=== PATIENT | female | born 1945 | race Caucasian/White ===

== ENCOUNTER → 2018-06-16 | Outpatient (CLI) | payer MEDICARE, OTHER ==
[~2018-06-16] MED LIST: IBUP-136 PO; VIT-7 PO
[2018-06-16 17:19] LABS: PLATELET COUNT, AUTOMATED 221 K/uL (150-450)
== END ==
LOC: LAB 16:30
PROVIDERS: ATTEND Family Medicine
DX: I10 Essential (primary) hypertension (principal); R79.89 Other specified abnormal findings of blood chemistry
CPT/HCPCS: 36415; 82040; 82247; 82310; 82374; 82435; 82565; 82947; 84075; 84132; 84155; 84295; 84439; 84443; 84450; 84460; 84520; 85025

== ENCOUNTER → 2018-08-27 | Outpatient (CLI) | payer MEDICARE, OTHER ==
--- NOTE | 2018-08-27 16:33 | RADIOLOGY IMAGING REPORT ---
FACILITY: [facility] PATIENT NAME: Digna Khan : 1945 MR: [id number] V: [id number] EXAM DATE: ORDERING PHYSICIAN: FRED CATHERINE TECHNOLOGIST: Location: [facility] [place] Patient: Digna Khan : 1945 Visit/Account:[id number] Date of Sevice: 08/27/2018 DEXA Scan Clinical history: Postmenopausal. Comparison: DEXA scan from 04/28/2009. LUMBAR SPINE: The bone mineral density (BMD) measured from L1-L4 correlates with a Z-score of 9.3 and a T-score of 7.6 which is Normal as defined by the World Health Organization. The corresponding risk of fracture in the lumbar spine is Not increased compared with a young adult reference population. This value williamson s increase by 26.6 % since the prior study. More than 5% change is considered significant. HIP: Bone mineral density (BMD) measured in the LEFT total hip region correlates with a Z-score 1.3 and a T-score of -0.4 which is normal as defined by the World Health Organization. The corresponding risk of fracture in the hip is Not i ncreased compared to a young adult reference population. This value has decrease by 0.9 % since the p rior study. More than 5% change is considered significant. T score left femoral neck -0.7 Bone mineral density (BMD) measured in the Femoral Neck region measures 0.935 g/cm?. IMPRESSION: 1. Lumbar spine: Normal. There has been 26.6% increase in the bone mineral density since the previo us exam. 2. Left Total Hip: Normal. There has been 0.9% decrease in the bone mineral density since the previ ous exam. 3. Femoral Neck: Bone Mineral Density is 0.935 g/cm? The next DEXA scan of this patient should include the following sites: L1-L4 and the left hip. FRAX? WHO Fracture Risk Assessment Tool link: <http://www.shef.ac.uk/FRAX/tool.jsp?locationValue=9> PLEASE NOTE: 1) The World Health Organization defines low BMD as follows: T-score Normal > -1 Osteopenia < -1 and > -2.5 Osteoporosis < -2.5 without fractures Established osteoporosis < -2.5 with fractures 2) In general, you may wish to consider: Diagnosis Treatment Follow-up DEXA Normal BMD Prevention 2-3 years Osteopenia Prevention/therapy 1-2 years Osteoporosis Therapy Yearly 3) Fracture risk estimated from the T-score is more accurate for vertebral fractures (often spontane ous) than for hip fractures. Report Dictated By: Elisa Tavarez MD at 08/27/2018 4:27 PM Report E-Signed By: Elisa Tavarez MD at 08/27/2018 4:28 PM WSN:[id number]
== END ==
LOC: RAD 01:27
PROVIDERS: ATTEND Pharmacist Pharmacotherapy
DX: Z78.0 Asymptomatic menopausal state (principal); I10 Essential (primary) hypertension
CPT/HCPCS: 77080

== ENCOUNTER 2018-09-26 00:57 | Day surgery (SDC) | payer MEDICARE, OTHER ==
[~2018-09-26] VITALS: Ht 160 cm; Wt 62.1 kg
[~2018-09-26 00:57] MED LIST changes: +CALC-751 PO
[2018-09-26] MEDS ORDERED: NORMOSOL R SOLN(*) 1000 ML BAG 1,000 ML IV PRN (10:00)
[2018-09-26 10:18] VITALS: BP 146/92
[2018-09-26] MEDS ORDERED: LIDOCAINE/SOD BICARB 8.4% SYR ID ONE (11:30)
[2018-09-26 13:01] VITALS: BP 101/56
--- NOTE | 2018-09-26 13:12 | Short(Outpt) Discharge Summary ---
Discharge Summary Reason for Hosp/Final Diag: (1) Encounter for screening colonoscopy Hospital Course & Plan: pt presented for colonoscopy. she tolerated the procedure well and there were no complications. Departure Discharge to: Home Discharge Instructions Home Meds Active Scripts Calcium Citrate/Vitamin D2 (CALCIUM WITH VIT D TABLET) 1 Each Tablet, 1 EACH PO QDAY for 30 Days, TAB *taking calcium 600mg with vit D 800IU Prov:FRED CATHERINE PHARMD 09/03/18 Vit A,C & E/Lutein/Minerals (OCUVITE TABLET) 1 Each Tablet, 1 EACH PO QDAY for 30 Days Prov:FRED CATHERINE PHARMD 08/25/18 Reported Medications Ibuprofen (IBUPROFEN) 200 Mg Capsule, 3 CAP PO PRN, CAPSULE 06/16/18 Diet: Regular Activity: As Tolerated Special Instructions: we will call you in 10 days with results. PRITI RIDDLE Sep 26, 2018 13:12
[2018-09-26 13:15] VITALS: BP 135/87
--- NOTE | 2018-09-26 13:26 | NUR ---
[address] Aguilar and Michelle DELGADO 1311 Pt woke up oriented and sleepy. Repositioned on own to semifowlers 1315 Given water. Pt tolerated it well.
[2018-09-26 13:30] VITALS: BP 116/90
[2018-09-26 13:39] VITALS: BP 160/94
[2018-09-26 13:42] VITALS: BP 151/96
== END 2018-09-26 14:10 | disposition home or self-care (01) ==
LOC: OR 00:57
PROVIDERS: ATTEND Surgery
DX: Z12.11 Encounter for screening for malignant neoplasm of colon (principal); D12.4 Benign neoplasm of descending colon; D12.5 Benign neoplasm of sigmoid colon
CPT/HCPCS: 88305